=== PATIENT | female | born 1950 | race Caucasian/White ===

== ENCOUNTER 2017-12-13 11:40 | Emergency (ER) | payer MEDICARE ==
[2017-12-13] MEDS ORDERED: IBUPROFEN 600 MG TABLET ONE (14:44)
== END 2017-12-13 15:45 | disposition home or self-care (01) ==
LOC: EDH 11:40
DX: S52.592A Other fractures of lower end of left radius, initial encounter for closed fracture (principal); I10 Essential (primary) hypertension; Z98.890 Other specified postprocedural states; Z88.0 Allergy status to penicillin; Z88.8 Allergy status to other drugs, medicaments and biological substances; W18.39XA Other fall on same level, initial encounter; Y93.89 Activity, other specified; Y92.89 Other specified places as the place of occurrence of the external cause; Y99.8 Other external cause status
CPT/HCPCS: 29125; 73080; 73110

== ENCOUNTER 2022-10-18 16:53 | Emergency (ER) | payer MEDICARE ==
[~2022-10-18] VITALS: Ht 157.5 cm; Wt 80.7 kg
[2022-10-18 20:13] LABS: BASOPHILS % (AUTO) 0.7 % (0.0-5.0); EOSINOPHILS % (AUTO) 2.1 % (0.0-8.0); HEMATOCRIT 41.6 % (36-48); LYMPHOCYTES % (AUTO) 31.6 % (21.0-51.0); MEAN CORPUSCULAR HEMOGLOBIN 31.8 pg (27.0-33.0); MEAN CORPUSCULAR HGB CONC 34.1 g/dL (32.0-36.0); MEAN CORPUSCULAR VOLUME 93.3 fL (79-99); MONOCYTES % (AUTO) 10.8 % (3.0-13.0); NEUTROPHILS % (AUTO) 53.8 % (40.0-77.0); PLATELET COUNT (AUTO) 323 K/uL (130-400); RED BLOOD CELL COUNT(AUTO) 4.46 MIL/uL (4.00-5.50); RED CELL DISTRIBUTION WIDTH 13.7 % (11.0-15.5); WHITE BLOOD COUNT (AUTO) 14.5 K/uL (4.8-10.8)
[2022-10-18 20:20] LABS: CREATININE 0.8 mg/dL (0.5-1.5); POTASSIUM 3.7 mmol/L (3.5-5.1)
[2022-10-18 20:25] LABS: ALBUMIN 3.8 g/dL (3.5-5.0); TOTAL PROTEIN, SERUM 7.2 g/dL (6.0-8.3)
[2022-10-18] MEDS ORDERED: CEPH500B PO (22:00)
[2022-10-18 22:06] VITALS: BP 136/65
== END 2022-10-18 22:10 | disposition home or self-care (01) ==
LOC: EDH 16:53
DX: S80.01XA Contusion of right knee, initial encounter (principal); S90.31XA Contusion of right foot, initial encounter; L03.115 Cellulitis of right lower limb; I10 Essential (primary) hypertension; R22.41 Localized swelling, mass and lump, right lower limb; Z96.641 Presence of right artificial hip joint; W18.39XA Other fall on same level, initial encounter; Y93.89 Activity, other specified; Y92.89 Other specified places as the place of occurrence of the external cause; Y99.8 Other external cause status
CPT/HCPCS: 36415; 73562; 73610; 73630; 80053; 85025; 93971